=== PATIENT | female | born 1970 | race Caucasian/White ===

== ENCOUNTER 2019-12-18 01:29 | Day surgery (SDC) | payer OTHER, SELFPAY ==
[2019-12-11 14:21] VITALS: BMI 29.7
[2019-12-18 09:14] VITALS: BP 126/86; PULSE 81; RESP 16; TEMP 37.2; O2SAT 98
--- NOTE | 2019-12-18 09:16 | P.PNAN_ITS ---
Anes - Initial Pre Proc Eval Procedure: Operation Date: 12/18/19 10:15 Proposed Procedures p Screening Colonoscopy - Samm Rodríguez MD Date/Time: 12/18/19 09:16 Surgeon: Samm Rodríguez MD Pre Op Diagnosis: neoplasm screening Patient Data Age: 49 Gender: F Height: 1.7 m Weight: 86.3 kg Allergies Allergy/AdvReac Type Severity Reaction Status Date / Time No Known Allergies Allergy Verified 12/18/19 09:12 Home Medications Medication Instructions Recorded Confirmed Type trazodone 50 mg PO DAILY 12/11/19 12/11/19 History venlafaxine 37.5 mg PO DAILY 12/11/19 12/11/19 History Patient hx anesthesia problems: none Family hx anesthesia problems: none [facility] Past Medical History Medical History (Updated 12/18/19 @ 09:18 by Richar Villarreal MD) Breast cancer LUMPECTOMY RIGHT SIDE, BREAST CANCER 5 YEARS AGO Cancer BREAST CANCER Gastroesophageal reflux disease Overweight (BMI 25.0-29.9) Surgical History Surgical History (Updated 12/18/19 @ 09:18 by Richar Villarreal MD) H/O: hysterectomy Family History Family History (Updated 01/04/11 @ 14:20 by DOCTOR UNKNOWN) Other Diabetes mellitus Social History Social History Smoking status: Never smoker Alcohol intake: current Anes - Eval Final PreProcedure Day of Procedure 12/18/19 09:16 Patient weight: overweight Heart: regular rate and rhythm Lungs: clear to auscultation and normal air movement Airway: Mallampati scale class II Neurological: alert and oriented Last oral intake: >/= 8 hours ASA classification: II Emergent: no Anesthetic plan: proceed Anesthesia type and monitoring: general GIVS Informed Consent: The patient's anesthetic plan and its attendant risks and benefits were discussed with the patient/family/POA. Questions were solicited and answers provided to the satisfaction of the patient/family/POA.
[2019-12-18] MEDS: LACTATED RINGERS 1,000 ML 150 ML IV CONT (09:29)
--- NOTE | 2019-12-18 10:31 | PM.HPGS ---
History of Present Illness History of Present Illness Consent: Risks, benefits, and alternatives have been discussed and questions answered. Patient agrees to proceed with procedure. Chief complaint: neoplasm screening Narrative: Vicki Souza is a 49 year old female here for screening colonoscopy, never had one. Review of Systems Constitutional: Constitutional: Denies headache(s) and Denies weakness Eyes: Eyes: Denies blurry vision ENT: Reports Normal hearing present, Denies headache(s) and Denies neck pain Cardiovascular: Cardiovascular: Denies chest pain and Denies dyspnea Respiratory: Respiratory: Denies dyspnea Gastrointestinal: Gastrointestinal: Reports no additional gastrointestinal complaints Genitourinary: Genitourinary: Denies dysuria Musculoskeletal: Musculoskeletal: Denies neck pain Integumentary/Breasts: Skin/Breast: Denies dry skin Neurologic: Reports Normal hearing present, Denies headache(s) and Denies weakness Psychiatric: Psychiatric: Denies anxiety Endocrine: Endocrine: Denies change in body appearance Hematologic/Lymphatic: Hematologic/Lymphatic: Denies easy bleeding Allergic/Immunologic: Allergic/Immunologic: Denies urticaria PMFSH Past Medical History Medical History (Updated 12/18/19 @ 10:33 by Samm Rodríguez MD) Breast cancer LUMPECTOMY RIGHT SIDE, BREAST CANCER 5 YEARS AGO Cancer BREAST CANCER Colon cancer screening Gastroesophageal reflux disease Overweight (BMI 25.0-29.9) Surgical History Surgical History (Updated 12/18/19 @ 09:18 by Richar Villarreal MD) H/O: hysterectomy Family History Family History (Updated 01/04/11 @ 14:20 by DOCTOR UNKNOWN) Other Diabetes mellitus Social History Social History Smoking status: Never smoker Alcohol intake: current Meds Home Medications and Allergies Home Medications Medication Instructions Recorded Confirmed Type trazodone 50 mg PO DAILY 12/11/19 12/11/19 History venlafaxine 37.5 mg PO DAILY 12/11/19 12/11/19 History Allergies Allergy/AdvReac Type Severity Reaction Status Date / Time No Known Allergies Allergy Verified 12/18/19 09:12 Vital Signs Vital Signs - 24 hr 12/18/19 09:14 Temperature 99.0 F Pulse Rate 81 Respiratory Rate 16 Blood Pressure 126/86 Pulse Oximetry 98 Exam Const: General: comfortable and no acute distress HENMT: General nose exam: Normal nares present Eyes: General: appearance normal, both eyes and all related structures Neck: Neck: no JVD Resp: Auscultation: clear to auscultation bilaterally Cardio: Rate: regular rate Rhythm: regular rhythm GI: Inspection: non-distended GI Palp: Yes Soft to palpation Skin: General skin exam: normal color Neuro: General: gait normal Speech: normal speech Extrem: General: normal to inspection Psych: Mental Status: mental status grossly normal Assessment and Plan Assessment and plan (1) Colon cancer screening: Code(s): Z12.11 - Encounter for screening for malignant neoplasm of colon Status: Acute Assessment and Plan: will proceed with colonoscopy (2) Gastroesophageal reflux disease: Qualifiers: Esophagitis presence: esophagitis presence not specified Qualified Code(s): K21.9 - Gastro-esophageal reflux disease without esophagitis Code(s): K21.9 - Gastro-esophageal reflux disease without esophagitis Status: Acute
[2019-12-18 11:01] VITALS: BP 111/60; PULSE 70; RESP 16; O2SAT 98
[2019-12-18 11:11] VITALS: BP 111/59; PULSE 65; RESP 16; O2SAT 98
[2019-12-18 11:21] VITALS: BP 115/74; PULSE 77; RESP 16; O2SAT 98
== END 2019-12-18 11:40 | disposition home or self-care (01) ==
PROVIDERS: PCP Family Medicine; Visit Provider Internal Medicine Gastroenterology
PROC: 0DJD8ZZ Inspection of Lower Intestinal Tract, Via Natural or Artificial Opening Endoscopic (ICD-10-PCS; CPT 45378; principal; 2019-12-18 10:15)
DX: Z12.11 Encounter for screening for malignant neoplasm of colon (principal); K64.8 Other hemorrhoids; K21.9 Gastro-esophageal reflux disease without esophagitis; Z85.3 Personal history of malignant neoplasm of breast
CPT/HCPCS: 45378; J2704; J7120

== ENCOUNTER 2022-06-08 10:05 | Day surgery (SDC) | payer OTHER, SELFPAY ==
[2022-06-02 14:53] VITALS: BMI 35.2
[2022-06-08 10:25] VITALS: BP 120/80; PULSE 73; RESP 20; TEMP 36.8; O2SAT 99
[2022-06-08 10:28] VITALS: BMI 34.3
--- NOTE | 2022-06-08 10:49 | WPDANESEPPF ---
Anes - Initial Pre Proc Eval Procedure: Operation Date: 06/08/22 12:00 Proposed Procedures p Esophagogastroduodenoscopy - Samm Rodríguez MD Date/Time: 06/08/22 10:49 Surgeon: Samm Rodríguez MD Pre Op Diagnosis: Gerd Patient Data Age: 51 Gender: F Height: 1.71 m Weight: 101 kg Last Vital Signs Temp 36.8 C 06/08/22 10:25 Pulse 73 06/08/22 10:25 Resp 20 06/08/22 10:25 BP 120/80 06/08/22 10:25 Pulse Ox 99 06/08/22 10:25 O2 Del Method Room Air 06/08/22 10:25 Allergies Allergy/AdvReac Type Severity Reaction Status Date / Time No Known Allergies Allergy Verified 06/08/22 10:15 Home Medications Medication Instructions Recorded Confirmed Type cetirizine 10 mg capsule (Zyrtec) 10 mg PO PRN PRN Allergy Symptoms 05/06/22 06/08/22 History famotidine 10 mg tablet 10 mg PO PRN PRN Acid Reflux 05/06/22 06/08/22 History (Zantac-360 (famotidine)) Patient hx anesthesia problems: none Family hx anesthesia problems: none Results Review: All pre-operative results and documents have been reviewed as part of the pre-operative evaluation. [facility] Past Medical History Medical History Acute sinusitis, unspecified Bitten by cat, initial encounter BMI 35.0-35.9,adult BMI 37.0-37.9, adult Body aches Breast cancer LUMPECTOMY RIGHT SIDE, BREAST CANCER 5 YEARS AGO Cancer BREAST CANCER Colon cancer screening COVID-19 Dietary counseling and surveillance (06/15/16) Gastroesophageal reflux disease Herpes zoster without complication Overweight (BMI 25.0-29.9) Poison maude Surgical History Surgical History H/O: hysterectomy Family History Family History Father No problems noted. Mother No problems noted. Sibling No problems noted. Other Diabetes mellitus Social History Social History Smoking status: Current every day smoker Tobacco type: e-cigarettes/vaping Second hand tobacco smoke exposure: No Alcohol intake: current Substance use: unknown Substance use type: marijuana Other substance usage details: gummie Living arrangements: with family Additional occupation/education comments: dog [employer] Spiritual care concerns: No Anes - Eval Final PreProcedure Day of Procedure 06/08/22 10:49 Patient weight: obese Heart: regular rate and rhythm Lungs: clear to auscultation Airway: Mallampati scale class II Neurological: alert and oriented Last oral intake: >/= 8 hours ASA classification: III Emergent: no Anesthetic plan: proceed Anesthesia type and monitoring: general GIVS and standard monitoring Results Review: All pre-operative results and documents have been reviewed as part of the pre-operative evaluation. Informed Consent: The patient's anesthetic plan and its attendant risks and benefits were discussed with the patient/family/POA. Questions were solicited and answers provided to the satisfaction of the patient/family/POA.
[2022-06-08] MEDS: LACTATED RINGERS 1,000 ML 30 ML IV CONT (10:52)
--- NOTE | 2022-06-08 11:33 | PM.HPGS ---
History of Present Illness History of Present Illness Consent: Risks, benefits, and alternatives have been discussed and questions answered. Patient agrees to proceed with procedure. Chief complaint: Gerd Narrative: Vicki Souza is a 51 year old female with gerd which was under control when she was using omeprazole for 2 years but recently stopped because concern about potential long side effects. Now using zantac as needed and more symptomatic, never had egd Review of Systems Constitutional: Constitutional: Denies headache(s) and Denies weakness Eyes: Eyes: Denies blurry vision ENT: Reports Normal hearing present, Denies headache(s) and Denies neck pain Cardiovascular: Cardiovascular: Denies chest pain and Denies dyspnea Respiratory: Respiratory: Denies dyspnea Gastrointestinal: Gastrointestinal: Reports no additional gastrointestinal complaints Genitourinary: Genitourinary: Denies dysuria Musculoskeletal: Musculoskeletal: Denies neck pain Integumentary/Breasts: Skin/Breast: Denies dry skin Neurologic: Reports Normal hearing present, Denies headache(s) and Denies weakness Psychiatric: Psychiatric: Denies anxiety Endocrine: Endocrine: Denies change in body appearance Hematologic/Lymphatic: Hematologic/Lymphatic: Denies easy bleeding Allergic/Immunologic: Allergic/Immunologic: Denies urticaria PMFSH Past Medical History Medical History Acute sinusitis, unspecified Bitten by cat, initial encounter BMI 35.0-35.9,adult BMI 37.0-37.9, adult Body aches Breast cancer LUMPECTOMY RIGHT SIDE, BREAST CANCER 5 YEARS AGO Cancer BREAST CANCER Colon cancer screening COVID-19 Dietary counseling and surveillance (06/15/16) Gastroesophageal reflux disease Herpes zoster without complication Overweight (BMI 25.0-29.9) Poison maude Surgical History Surgical History H/O: hysterectomy Family History Family History Father No problems noted. Mother No problems noted. Sibling No problems noted. Other Diabetes mellitus Social History Social History Smoking status: Current every day smoker Tobacco type: e-cigarettes/vaping Second hand tobacco smoke exposure: No Alcohol intake: current Substance use: unknown Substance use type: marijuana Other substance usage details: liza Living arrangements: with family Additional occupation/education comments: dog kennel Spiritual care concerns: No Meds Home Medications and Allergies Home Medications Medication Instructions Recorded Confirmed Type cetirizine 10 mg capsule (Zyrtec) 10 mg PO PRN PRN Allergy Symptoms 05/06/22 06/08/22 History famotidine 10 mg tablet 10 mg PO PRN PRN Acid Reflux 05/06/22 06/08/22 History (Zantac-360 (famotidine)) Allergies Allergy/AdvReac Type Severity Reaction Status Date / Time No Known Allergies Allergy Verified 06/08/22 10:15 Vital Signs Vital Signs - 24 hr 06/08/22 10:25 06/08/22 10:25 Temperature 98.2 F 98.2 F Pulse Rate 73 73 Respiratory Rate 20 20 Blood Pressure 120/80 120/80 Pulse Oximetry 99 99 Oxygen Delivery Room Air Room Air Exam Const: General: comfortable and no acute distress HENMT: General nose exam: Normal nares present Eyes: General: appearance normal, both eyes and all related structures Neck: Neck: no JVD Resp: Auscultation: clear to auscultation bilaterally Cardio: Rate: regular rate Rhythm: regular rhythm GI: Inspection: non-distended GI Palp: Yes Soft to palpation Skin: General skin exam: normal color Neuro: General: gait normal Speech: normal speech Extrem: General: normal to inspection Psych: Mental Status: mental status grossly normal Assessment and Plan Assessment and plan (1) Ga
--- NOTE | 2022-06-08 11:45 | SUR.OPER ---
esophagus ballooned using 15-18 balloon. lot [id number]
[2022-06-08 11:50] VITALS: BP 131/83; PULSE 80; RESP 21; TEMP 36.7; O2SAT 99
[2022-06-08 12:00] VITALS: BP 126/92; PULSE 78; RESP 20; O2SAT 100
[2022-06-08 12:10] VITALS: BP 137/95; PULSE 80; RESP 20; O2SAT 100
--- NOTE | 2022-06-08 12:57 | WPDANESPN ---
Anes - Prog Note Post-Op Date/Time: 06/08/22 12:57 Cardiovascular status: normal Respiratory status: normal Airway patency: baseline Mental status: baseline Post-Op hydration status: normal Vital Signs: Last Vital Signs Temp 36.7 C 06/08/22 11:50 Pulse 80 06/08/22 12:10 Resp 20 06/08/22 12:10 BP 137/95 H 06/08/22 12:10 Pulse Ox 100 06/08/22 12:10 O2 Del Method Room Air 06/08/22 12:10 Pain Score (VAS): 0 I/O: Intake & Output 06/07/22 06/08/22 06/08/22 23:59 07:59 15:59 Intake Total 300 Balance 300 Patient Feedback: Patient satisfied with anesthetic care.
== END 2022-06-08 12:20 | disposition home or self-care (01) ==
PROVIDERS: PCP Family Medicine; Visit Provider Internal Medicine Gastroenterology
PROC: 0DP08DZ Removal of Intraluminal Device from Upper Intestinal Tract, Via Natural or Artificial Opening Endoscopic (ICD-10-PCS; CPT 43247; principal; 2022-06-08 12:00)
DX: K21.9 Gastro-esophageal reflux disease without esophagitis (principal)
CPT/HCPCS: 43249; 43239

== ENCOUNTER 2022-06-08 16:00 | Outpatient (NON) | payer OTHER, SELFPAY | END 2022-06-08 16:01 | disposition home or self-care (01) | LOC: ANHLAB 16:01 | PROVIDERS: PCP Family Medicine; Visit Provider Internal Medicine Gastroenterology | DX: K21.9 Gastro-esophageal reflux disease without esophagitis (principal); K44.9 Diaphragmatic hernia without obstruction or gangrene | CPT/HCPCS: 88305 ==